=== PATIENT | male | born 2000 | race African-American/Black ===

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

== ENCOUNTER 2022-04-11 20:10 | Emergency (ER) | payer BC, OTHER ==
[2022-04-11 20:19] VITALS: BP 125/64; PULSE 72; RESP 18; TEMP 98; BMI 24.7
[2022-04-11] MEDS ORDERED: ACETAMINOPHEN 325 MG TABLET (FP) PO ONE (20:53)
[2022-04-11] MEDS ORDERED: ACETAMINOPHEN 325 MG TABLET (FP) ONE (21:01)
[2022-04-11] MEDS ORDERED: IBUPROFEN 600 MG TABLET (FP) PO ONE ×2 (21:14→21:20)
== END 2022-04-11 22:01 | disposition home or self-care (01) ==
LOC: JER 20:10
DX: S93.401A Sprain of unspecified ligament of right ankle, initial encounter (principal); X50.0XXA Overexertion from strenuous movement or load, initial encounter; Y93.67 Activity, basketball
CPT/HCPCS: 73590-TC-LT-FY; 73610-TC-LT-FY; 73630-TC-LT; 99284-25